=== PATIENT | male | born 1985 | race Caucasian/White ===

== ENCOUNTER 2019-06-04 15:36 | Emergency (ER) | payer SELFPAY ==
[~2019-06-04] VITALS: Ht 193 cm; Wt 113.4 kg
[2019-06-04 15:43] VITALS: Ht 193 cm; Wt 113.4 kg
[2019-06-04 18:32] VITALS: BP 122/67
== END 2019-06-04 18:32 | disposition home or self-care (01) ==
LOC: ED 15:36
DX: M54.42 Lumbago with sciatica, left side (principal)
CPT/HCPCS: J1885